=== PATIENT | male | born 1990 | race African-American/Black ===

== ENCOUNTER 2017-05-08 17:48 | Observation (INO) | payer OTHER ==
[~2017-05-08 17:48] MED LIST: ASPI81TA23 PO; CEPH-459 PO; TYLETAB34 PO; ZOFR4TAB3 SL
[2017-05-08] MEDS ORDERED: NITROGLYCERIN 0.4 MG SL 25 TABS/BTL SL PRN (20:00)
[2017-05-08] MEDS ORDERED: SODIUM CHLORIDE 0.9% FLUSH 10 ML FLUSH IV FLUSH PRN (20:00)
[2017-05-08] MEDS ORDERED: ACETAMINOPHEN 500 MG CPLT PO PRN (20:00)
--- NOTE | 2017-05-08 23:24 | HHI.HP ---
HPI Service [facility] Primary Care Physician Monse Gregory MD . Admission Diagnosis Chest pain . Diagnoses: (1) Valvular heart disease (2) Atypical chest pain Chief Complaint: Chest pain and shortness of breath with exertion Travel History International Travel<30 Days: No Contact w/Intl Traveler <30 Da: No History of Present Illness Mr. Lockett is a 26 y/o male with a history of endocarditis, valvular heart disease, possibly nonischemic cardiomyopathy, and hypertension who presented to the emergency room in [place] on 05/08/2017 for evaluation of chest pain and worsening shortness of breath with exertion. He was transferred to [facility] for observation and further evaluation. The patient is seen in the CDU. He reports shortness of breath with exertion and chest pain located on the left side of his chest and radiating down his left arm described as a cramp. The symptom is worsened with attempts at deep breathing. He seems to have limited insight into his medical conditions. He was initially sent over with a reported history of coronary artery disease but upon further discussion with him, it appears that he had nonischemic cardiomyopathy with valvular heart disease. He tells me his ob scrub tech is Dr. Cedeño. He does report a history of endocarditis but denies any history of IV drug abuse. He is not able to tell me how he got the infection in his heart valves. He tells me for the past few weeks, he has been having fevers and chills with cough and yellowish sputum production. He also reports maroon streaks in his bowel movements. He reports extensive weight loss in the last 2 years of 131 pounds - unintentional and related to poor appetite. He has a history of colon polyps. The patient reports that he has been off all of his heart medications over the past 2 years as he lost his health insurance in 2014. He tells me he is supposed to be taking a blood thinner. He was recently hospitalized [facility] in [place] and discharged 05/02/17. We need to obtain a copy of his past medical records. Review of Systems Except as stated in HPI: all other systems reviewed are Neg Past Family Social History Past Medical History Hypertension Endocarditis Valvular heart disease Questionable history of nonischemic cardiomyopathy Colon polyps . Past Surgical History Denies any prior surgery . Reported Medications Reported Meds & Active Scripts Active Reported Aspirin EC (Aspirin) 81 Mg Tabdr 81 Mg PO DAILY . Allergies: Coded Allergies: pollen extracts (Verified Allergy, Unknown, 05/08/17) Uncoded Allergies: SEAFOOD (Allergy, Unknown, 02/08/17) Active Ordered Medications Current Medications Sodium Chloride (NS Flush) 2 ml BID IV FLUSH Last administered on 05/09/17at 00: 18; Start 05/08/17 at 21:00 Sodium Chloride (NS Flush) 2 ml UNSCH PRN IV FLUSH FLUSH AFTER USING IV ACCESS ; Start 05/08/17 at 20:00 Nitroglycerin (Nitrostat Sl) 0.4 mg Q5M PRN SL ANGINA; Start 05/08/17 at 20:00 Acetaminophen (Tylenol) 500 mg Q4H PRN PO HEADACHE; Start 05/08/17 at 20:00 Heparin Sodium (Porcine) (Heparin Inj) 5,000 units Q8H SQ Last administered on 05/09/17at 00:20; Start 05/08/17 at 20:00 Aspirin (Aspirin) 325 mg DAILY PO ; Start 05/09/17 at 09:00 . Family History Mother with colon cancer, breast cancer Father with valvular heart disease, age 47 during valve replacement surgery . Social History Tobacco: Quit smoking 3 years ago but was never a heavy smoker Alcohol: Denies Illicit Drugs: formerly smoked marijuana . Physical Exam Vital Signs Vital Signs Date Time Temp Pulse Resp B/P (MAP) Pulse Ox O2 Delivery O2 Flow Rate FiO2 05/09/17 00:00 98.0 71 18 129/75 (93) 99 Physical Exam GENERAL: This is a well-nourished, well-developed patient, in no apparent distress. SKIN: No rashes, ecchymoses or lesions. Cool and dry. HEAD: Atraumatic. Normocephalic. EYES: No scleral icterus. No injection or drainage. ENT: Nose without bleeding, purulent drainage. NECK: Trachea midline. No JVD. CARDIOVASCULAR: Regular rate and rhythm with 3/6 systolic murmur heard throughout precordium. RESPIRATORY: Clear to auscultation. Breath sounds equal bilaterally. No wheezes , rales, or rhonchi. GASTROINTESTINAL: Abdomen soft, non-tender, nondistended. No guarding. MUSCULOSKELETAL: Extremities without clubbing, cyanosis, or edema. No calf tenderness. NEUROLOGICAL: Awake and alert. Motor and sensory grossly within normal limits. Normal speech. . Laboratory Laboratory Tests Test 05/08/17 15:00 05/08/17 19:45 White Blood Count 5.0 TH/MM3 Red Blood Count 4.88 MIL/MM3 Hemoglobin 16.3 GM/DL Hematocrit 48.5 % Mean Corpuscular Volume 99.4 FL Mean Corpuscular Hemoglobin 33.4 PG Mean Corpuscular Hemoglobin Concent 33.6 % Red Cell Distribution Width 11.8 % Platelet Count 209 TH/MM3 Mean Platelet Volume 11.2 FL Immature Granulocyte % (Auto) 0.4 % Neutrophils (%) (Auto) 54.7 % Lymphocytes (%) (Auto) 32.7 % Monocytes (%) (Auto) 6.2 % Eosinophils (%) (Auto) 5.0 % Basophils (%) (Auto) 1.0 % Immature Granulocyte # (Auto) 0.0 TH/MM3 Neutrophils # (Auto) 2.8 TH/MM3 Lymphocytes # (Auto) 1.7 TH/MM3 Monocytes # (Auto) 0.3 TH/MM3 Eosinophils # (Auto) 0.3 TH/MM3 Basophils # (Auto) 0.1 TH/MM3 CBC Comment DIFF FINAL Differential Comment Prothrombin Time 10.3 SEC Prothromb Time International Ratio 1.0 RATIO Blood Urea Nitrogen 19 MG/DL Creatinine 1.30 MG/DL Random Glucose 72 MG/DL Calcium Level 8.9 MG/DL Sodium Level 143 MEQ/L Potassium Level 4.0 MEQ/L Chloride Level 107 MEQ/L Carbon Dioxide Level 32.0 MEQ/L Anion Gap 4 MEQ/L Estimat Glomerular Filtration Rate 80 ML/MIN Total Creatine Kinase 202 U/L Creatine Kinase MB 4.8 NG/ML Troponin I 0.04 NG/ML Laboratory Tests Test 05/08/17 22:43 Total Creatine Kinase 153 U/L Troponin I 0.02 NG/ML Imaging Last Impressions Chest X-Ray 05/08/17 9831 Signed Impressions: Service Date/Time: Monday, May 08, 2017 15:46 - CONCLUSION: No acute disease. Marty Urena MD . Caprini VTE Risk Assessment Caprini VTE Risk Assessment: No/Low Risk (score <= 1) Caprini Risk Assessment Model Point Value = 1 Point Value = 2 Point Value = 3 Point Value = 5 Age 41-60 Minor surgery BMI > 25 kg/m2 Swollen legs Varicose veins or History of unexplained or recurrent spontaneous Oral contraceptives or hormone replacement Sepsis (< 1 month) Serious lung disease, including pneumonia (< 1 month) Abnormal pulmonary function Acute myocardial infarction Congestive heart failure (< 1 month) History of inflammatory bowel disease Medical patient at bed rest Age 61-74 Arthroscopic surgery Major open surgery (> 45 min) Laparoscopic surgery (> 45 min) Malignancy Confined to bed (> 72 hours) Immobilizing plaster cast Central venous access Age >= 75 History of VTE Family history of VTE Factor V Leiden Prothrombin [id number] Lupus anticoagulant Anticardiolipin antibodies Elevated serum homocysteine Heparin-induced thrombocytopenia Other congenital or acquired thrombophilia Stroke (< 1 month) Elective arthroplasty Hip, pelvis, or leg fracture Acute spinal cord injury (< 1 month) Prophylaxis Regimen Total Risk Factor Score Risk Level Prophylaxis Regimen 0-1 Low Early ambulation 2 Moderate Order ONE of the following: *Sequential Compression Device (SCD) *Heparin 5000 units SQ BID 3-4 Higher Order ONE of the following medications: *Heparin 5000 units SQ TID *Enoxaparin/Lovenox 40 mg SQ daily (WT < 150 kg, CrCl > 30 mL/min) *Enoxaparin/Lovenox 30 mg SQ daily (WT < 150 kg, CrCl > 10-29 mL/min) *Enoxaparin/Lovenox 30 mg SQ BID (WT < 150 kg, CrCl > 30 mL/min) AND/OR *Sequential Compression Device (SCD) 5 or more Highest Order ONE of the following medications: *Heparin 5000 units SQ TID (Preferred with Epidurals) *Enoxaparin/Lovenox 40 mg SQ daily (WT < 150 kg, CrCl > 30 mL/min) *Enoxaparin/Lovenox 30 mg SQ daily (WT < 150 kg, CrCl > 10-29 mL/min) *Enoxaparin/Lovenox 30 mg SQ BID (WT < 150 kg, CrCl > 30 mL/min) AND *Sequential Compression Device (SCD) Assessment and Plan Problem List: (1) Atypical chest pain ICD Code: R07.89 - Other chest pain (2) Valvular heart disease ICD Code: I38 - Endocarditis, valve unspecified Status: Chronic Assessment and Plan Mr. Lockett is a 26 y/o male with a history of endocarditis, valvular heart disease, possibly nonischemic cardiomyopathy, and hypertension who presented to the emergency room in [place] on 05/08/2017 for evaluation of chest pain and worsening shortness of breath with exertion. He was transferred to [facility] for observation and further evaluation. Atypical chest pain Shortness of breath with exertion Valvular heart disease - RN to obtain consent and medical records from [facility] in [place] as patient had a workup there and was discharged last Wednesday - patient states an echocardiogram was done - patient's ob scrub tech is Dr. Cedeño [place]. We may want to contact him for additional information as the patient does not have the best insight into his medical conditions - serial EKGs and cardiac enzymes to r/o ACS - Continuous cardiac telemetry to monitor for arrhythmias - Heart healthy diet until midnight, then nothing by mouth - will check D-Dimer - consider cardiology consultation Possible lower gi bleed - maroon streaked stool - will check stool for occult blood - H&H normal - follow CBC result in a.m. to trend - BP normal - consider GI consultation Unintentional weight loss - patient denies HIV risk factors - family history of colon cancer - will check TSH - will consult remote ruby on rails developer - medical records need to be obtained DVT prophylaxis - Heparin 5000 units subcutaneous every 8 hours Discussed Condition With Patient, RN, and Dr. Orosco . Bessie Foley May 08, 2017 23:24
[2017-05-09] VITALS (8 sets, daily range): BP systolic 129–163; BP diastolic 64–80; PULSE 53–82; RESP 18–20; TEMP 97–98.2; O2SAT 97–99
[2017-05-09 00:02] LABS: TROPONIN I 0.02 NG/ML (0.02-0.05)
[2017-05-09] MEDS: SODIUM CHLORIDE 0.9% FLUSH 10 ML FLUSH IV FLUSH SCH ×3 (00:18→21:48)
[2017-05-09] MEDS: HEPARIN SODIUM - SQ 10,000 UNITS/ML VIAL SQ SCH ×4 (00:20→21:48)
[2017-05-09 03:42] LABS: AUTOMATED NEUTROPHIL # 2.7 TH/MM3 (1.8-7.7); BASOPHIL # 0.1 TH/MM3 (0-0.2); BASOPHIL % 1.1 % (0.0-2.0); EOSINOPHIL # 0.4 TH/MM3 (0-0.4); EOSINOPHIL % 6.4 % (0.0-4.0); HEMATOCRIT 45.3 % (39.0-51.0); HEMOGLOBIN 15.3 GM/DL (13.0-17.0); LYMPH % 36.8 % (9.0-44.0); LYMPHOCYTE # 2.1 TH/MM3 (1.0-4.8); MEAN CELL VOLUME 98.4 FL (80.0-100.0); MEAN CORPUSCULAR HEMOGLOBIN 33.2 PG (27.0-34.0); MEAN CORPUSCULAR HGB CONC 33.7 % (32.0-36.0); MEAN PLATELET VOLUME 9.8 FL (7.0-11.0); MONO % 8.5 % (0.0-8.0); MONOCYTE # 0.5 TH/MM3 (0-0.9); NEUT % 47.2 % (16.0-70.0); PLATELET COUNT 171 TH/MM3 (150-450); RED BLOOD COUNT 4.61 MIL/MM3 (4.50-5.90); RED CELL DISTRIBUTION WIDTH 12.5 % (11.6-17.2); WHITE BLOOD COUNT 5.7 TH/MM3 (4.0-11.0)
[2017-05-09 03:55] LABS: BICARBONATE 27.3 MEQ/L (21.0-32.0); CALCIUM 8.7 MG/DL (8.5-10.1); CREATININE 0.93 MG/DL (0.60-1.30)
[2017-05-09 03:59] LABS: TROPONIN I 0.03 NG/ML (0.02-0.05)
[2017-05-09] MEDS: ASPIRIN 325 MG TAB PO SCH (08:53)
--- NOTE | 2017-05-09 14:03 | HHI.PR ---
Subjective Remarks Did not have a BM yet. BP into a higher side. Some nausea able to eat and keep down some food. Has chest pain. No fever or chills. Objective Vitals Vital Signs Date Time Temp Pulse Resp B/P (MAP) Pulse Ox O2 Delivery O2 Flow Rate FiO2 05/09/17 08:57 97.9 68 20 160/80 (106) 98 05/09/17 04:21 98.2 53 18 163/75 (104) 99 05/09/17 00:00 98.0 71 18 129/75 (93) 99 I/O 05/08/17 05/08/17 05/08/17 05/09/17 05/09/17 05/09/17 07:00 15:00 23:00 07:00 15:00 23:00 Intake Total 360 ml Output Total 100 ml Balance 260 ml Intake Oral 360 ml Output Urine Total 100 ml Result Diagram: 05/09/17 0323 05/09/17 032 Objective Remarks GENERAL: This is a well-nourished, well-developed patient, in no apparent distress. SKIN: No rashes, ecchymoses or lesions. Cool and dry. HEAD: Atraumatic. Normocephalic. EYES: No scleral icterus. No injection or drainage. ENT: Nose without bleeding, purulent drainage. NECK: Trachea midline. No JVD. CARDIOVASCULAR: Regular rate and rhythm with 3/6 systolic murmur heard throughout precordium. RESPIRATORY: Clear to auscultation. Breath sounds equal bilaterally. No wheezes , rales, or rhonchi. GASTROINTESTINAL: Abdomen soft, non-tender, nondistended. No guarding. MUSCULOSKELETAL: Extremities without clubbing, cyanosis, or edema. No calf tenderness. NEUROLOGICAL: Awake and alert. Motor and sensory grossly within normal limits. Normal speech. A/P Problem List: (1) Atypical chest pain ICD Code: R07.89 - Other chest pain (2) Valvular heart disease ICD Code: I38 - Endocarditis, valve unspecified Status: Chronic Assessment and Plan Mr. Lockett is a 26 y/o male with a history of endocarditis, valvular heart disease, possibly nonischemic cardiomyopathy, and hypertension who presented to the emergency room in [place] on 05/08/2017 for evaluation of chest pain and worsening shortness of breath with exertion. He was transferred to [facility] for observation and further evaluation. Atypical chest pain Shortness of breath with exertion Valvular heart disease - RN to obtain consent and medical records from [facility] in [place] as patient had a workup there and was discharged last Wednesday - patient states an echocardiogram was done - patient's log sorting supervisor is Dr. Cedeño [place]. neg - D-Dimer normal - Continuous cardiac telemetry to monitor for arrhythmias - Heart healthy diet until midnight, then nothing by mouth - consider cardiology consultation Possible lower gi bleed - maroon streaked stool - will check stool for occult blood - H&H normal - follow CBC result in a.m. to trend - BP normal - consider GI consultation Unintentional weight loss - patient denies HIV risk factors - family history of colon cancer - TSH is normal - will consult radiator tester - medical records need to be obtained DVT prophylaxis, scd/teds Discussed Condition With Patient, nurse Nasima Araiza MD May 09, 2017 14:03
--- NOTE | 2017-05-09 17:29 | EKG ---
Date Performed: 05/09/2017 Time Performed: 02:15:23 PTAGE: 26 years EKG: Sinus rhythm POSSIBLE LEFT VENTRICULAR HYPERTROPHY PROLONGED QT INTERVAL ABNORMAL ECG NO PREVIOUS TRACING DOCTOR: Peter Mathur Interpretating Date/Time 05/09/2017 17:57:23
--- NOTE | 2017-05-09 17:59 | EKG ---
Date Performed: 05/09/2017 Time Performed: 06:21:59 PTAGE: 26 years EKG: SINUS BRADYCARDIA POSSIBLE LEFT VENTRICULAR HYPERTROPHY PROLONGED QT INTERVAL ABNORMAL ECG PREVIOUS TRACING : 05/09/2017 02.15 Since previous tracing, no significant change noted DOCTOR: Peter Mathur Interpretating Date/Time 05/09/2017 17:57:45
[2017-05-09] MEDS ORDERED: NALOXONE HCL 0.4 MG/ML AMP IV PUSH PRN (19:45)
[2017-05-09] MEDS ORDERED: SENNOSIDES 8.6 MG TAB PO PRN (19:45)
[2017-05-09] MEDS ORDERED: MAGNESIUM HYDROXIDE SUSP 30 ML CUP PO PRN (19:45)
[2017-05-09] MEDS ORDERED: ONDANSETRON HCL 4 MG/2 ML VIAL IVP PRN (19:45)
[2017-05-09] MEDS ORDERED: ACETAMINOPHEN 325 MG TAB PO PRN (19:45)
[2017-05-09] MEDS ORDERED: SODIUM CHLORIDE 0.9% FLUSH 10 ML FLUSH IV FLUSH PRN (19:45)
[2017-05-09] MEDS ORDERED: ENALAPRILAT 2.5 MG/2 ML VIAL IV PUSH PRN (19:45)
[2017-05-09] MEDS ORDERED: BISACODYL 10 MG SUPP RECTAL PRN (19:45)
[2017-05-09] MEDS ORDERED: LACTULOSE SYRUP 20 GM/30 ML CUP PO PRN (19:45)
[2017-05-09] MEDS ORDERED: SODIUM CHLORIDE 0.9% FLUSH 10 ML FLUSH IV FLUSH SCH (21:00)
[2017-05-09] MEDS: DOCUSATE SODIUM 50 MG/SENNA 8.6 MG TAB PO SCH (21:00)
[2017-05-10] VITALS (9 sets, daily range): BP systolic 139–179; BP diastolic 70–79; PULSE 52–88; RESP 18–20; TEMP 97.8–98.3; O2SAT 98–99
[2017-05-10] MEDS: HEPARIN SODIUM - SQ 10,000 UNITS/ML VIAL SQ SCH ×3 (05:11→20:00)
[2017-05-10 08:43] LABS: BICARBONATE 25.8 MEQ/L (21.0-32.0); CALCIUM 8.7 MG/DL (8.5-10.1)
[2017-05-10 09:11] LABS: AUTOMATED NEUTROPHIL # 2.6 TH/MM3 (1.8-7.7); EOSINOPHIL # 0.3 TH/MM3 (0-0.4); HEMATOCRIT 48.2 % (39.0-51.0); HEMOGLOBIN 16.5 GM/DL (13.0-17.0); LYMPH % 32.3 % (9.0-44.0); LYMPHOCYTE # 1.6 TH/MM3 (1.0-4.8); MEAN CORPUSCULAR HEMOGLOBIN 33.7 PG (27.0-34.0); MEAN CORPUSCULAR HGB CONC 34.4 % (32.0-36.0); MEAN PLATELET VOLUME 10.6 FL (7.0-11.0); MONOCYTE # 0.4 TH/MM3 (0-0.9); NEUT % 52.7 % (16.0-70.0); PLATELET COUNT 195 TH/MM3 (150-450); RED BLOOD COUNT 4.91 MIL/MM3 (4.50-5.90); RED CELL DISTRIBUTION WIDTH 12.3 % (11.6-17.2); WHITE BLOOD COUNT 4.9 TH/MM3 (4.0-11.0)
[2017-05-10] MEDS: ASPIRIN 325 MG TAB PO SCH (10:14)
[2017-05-10] MEDS: SODIUM CHLORIDE 0.9% FLUSH 10 ML FLUSH IV FLUSH SCH ×2 (10:14→21:00)
[2017-05-10] MEDS: DOCUSATE SODIUM 50 MG/SENNA 8.6 MG TAB PO SCH ×2 (10:14→21:00)
--- NOTE | 2017-05-10 11:42 | HHI.PR ---
Subjective Remarks In bed says she has less pain. Very poor hystorian. Patient however is telling me he has a h/o endocarditis and thinks this is coming back. Says he had a PICC line and he did finish all the course of antibiotic and was cleared by his cardiology Dr Juliocesar Ward. Feels tired. No n/v/d/c. No sweating. Records pending , discussed withthe nurse and will call Beata Chavira and his cardiology office to obtain records faxed request again. Objective Vitals Vital Signs Date Time Temp Pulse Resp B/P (MAP) Pulse Ox O2 Delivery O2 Flow Rate FiO2 05/10/17 11:26 97.9 57 18 151/75 (100) 99 05/10/17 07:05 98.0 57 18 151/74 (99) 98 05/10/17 03:50 98.2 82 20 139/70 (93) 98 05/09/17 23:45 97.0 82 20 140/64 (89) 98 05/09/17 20:05 97.7 58 18 149/72 (97) 97 05/09/17 17:24 97.9 80 20 146/66 (92) 98 05/09/17 12:03 55 I/O 05/09/17 05/09/17 05/09/17 05/10/17 05/10/17 05/10/17 07:00 15:00 23:00 07:00 15:00 23:00 Intake Total 360 ml 360 ml Output Total 100 ml 700 ml Balance 260 ml -700 ml 360 ml Intake Oral 360 ml 360 ml Output Urine Total 100 ml 700 ml Result Diagram: 05/10/17 0645 05/10/17 0745 Objective Remarks GENERAL: This is a well-nourished, well-developed patient, in no apparent distress. SKIN: No rashes, ecchymoses or lesions. Cool and dry. HEAD: Atraumatic. Normocephalic. EYES: No scleral icterus. No injection or drainage. ENT: Nose without bleeding, purulent drainage. NECK: Trachea midline. No JVD. CARDIOVASCULAR: Regular rate and rhythm with 3/6 systolic murmur heard throughout precordium. RESPIRATORY: Clear to auscultation. Breath sounds equal bilaterally. No wheezes , rales, or rhonchi. GASTROINTESTINAL: Abdomen soft, non-tender, nondistended. No guarding. MUSCULOSKELETAL: Extremities without clubbing, cyanosis, or edema. No calf tenderness. NEUROLOGICAL: Awake and alert. Motor and sensory grossly within normal limits. Normal speech. A/P Problem List: (1) Atypical chest pain ICD Code: R07.89 - Other chest pain (2) Valvular heart disease ICD Code: I38 - Endocarditis, valve unspecified Status: Chronic Assessment and Plan Mr. Lockett is a 26 y/o male with a history of endocarditis, valvular heart disease, possibly nonischemic cardiomyopathy, and hypertension who presented to the emergency room in [place] on 05/08/2017 for evaluation of chest pain and worsening shortness of breath with exertion. He was transferred to [facility] for observation and further evaluation. Atypical chest pain Shortness of breath with exertion Valvular heart disease Per patient h/o endocarditis treated with IV antibiotic had a PICC line and also was cleared by his cardiology Dr Cedeño, however patient is a poor historian and doesn't have insight of his medical problems. - RN to obtain consent and medical records from [facility] in [place] as patient had a workup there and was discharged last Wednesday - patient states an echocardiogram was done - patient's personal financial representative is Dr. Cedeño [place]. neg - D-Dimer normal - Continuous cardiac telemetry to monitor for arrhythmias - Heart healthy diet until midnight, then nothing by mouth - consider cardiology consultation - Await records from Ignacio Chavira and his cardiology in [place] Dr Cedeño, discussed with the nurse, will fax again request Possible lower gi bleed - maroon streaked stool - will check stool for occult blood - H&H normal - follow CBC result in a.m. to trend - BP normal - consider GI consultation Unintentional weight loss - patient denies HIV risk factors - family history of colon cancer - TSH is normal - will consult grain elevator clerk - medical records need to be obtained DVT prophylaxis, scd/teds Discussed Condition With Patient, nurse Nasima Araiza MD May 10, 2017 11:42
[2017-05-11 00:49] VITALS: BP 150/73; PULSE 58; RESP 16; TEMP 97.8; O2SAT 97
[2017-05-11] MEDS: HEPARIN SODIUM - SQ 10,000 UNITS/ML VIAL SQ SCH ×2 (04:00→12:05)
[2017-05-11 07:43] VITALS: BP 142/67; PULSE 56; RESP 18; TEMP 97.7; O2SAT 100
[2017-05-11 08:15] VITALS: PULSE 54
[2017-05-11] MEDS: ASPIRIN 325 MG TAB PO SCH (09:40)
[2017-05-11] MEDS: DOCUSATE SODIUM 50 MG/SENNA 8.6 MG TAB PO SCH (09:40)
[2017-05-11] MEDS: SODIUM CHLORIDE 0.9% FLUSH 10 ML FLUSH IV FLUSH SCH (09:41)
[2017-05-11 11:29] VITALS: BP 151/70; PULSE 62; RESP 18; TEMP 97.5; O2SAT 99
--- NOTE | 2017-05-11 11:35 | HHI.DS ---
Discharge Summary Admission Date May 08, 2017 at 21:30 Discharge Date: May 11, 2017 Admitting Diagnosis Chest pain . (1) Atypical chest pain ICD Code: R07.89 - Other chest pain (2) Valvular heart disease ICD Code: I38 - Endocarditis, valve unspecified Status: Chronic Procedures none Brief History - From Admission Mr. Lockett is a 26 y/o male with a history of endocarditis, valvular heart disease, possibly nonischemic cardiomyopathy, and hypertension who presented to the emergency room in [place] on 05/08/2017 for evaluation of chest pain and worsening shortness of breath with exertion. He was transferred to [facility] for observation and further evaluation. The patient is seen in the CDU. He reports shortness of breath with exertion and chest pain located on the left side of his chest and radiating down his left arm described as a cramp. The symptom is worsened with attempts at deep breathing. He seems to have limited insight into his medical conditions. He was initially sent over with a reported history of coronary artery disease but upon further discussion with him, it appears that he had nonischemic cardiomyopathy with valvular heart disease. He tells me his plasticator is Dr. Cedeño. He does report a history of endocarditis but denies any history of IV drug abuse. He is not able to tell me how he got the infection in his heart valves. He tells me for the past few weeks, he has been having fevers and chills with cough and yellowish sputum production. He also reports maroon streaks in his bowel movements. He reports extensive weight loss in the last 2 years of 131 pounds - unintentional and related to poor appetite. He has a history of colon polyps. The patient reports that he has been off all of his heart medications over the past 2 years as he lost his health insurance in 2014. He tells me he is supposed to be taking a blood thinner. He was recently hospitalized [facility] in [place] and discharged 05/02/17. We need to obtain a copy of his past medical records. CBC/BMP: 05/10/17 0645 05/10/17 0745 Significant Findings Laboratory Tests Test 05/08/17 22:43 05/09/17 03:23 05/10/17 06:45 05/10/17 07:45 Monocytes (%) (Auto) 8.5 % (0.0-8.0) Eosinophils (%) (Auto) 6.4 % (0.0-4.0) 6.0 % (0.0-4.0) Chloride Level 108 MEQ/L (98-107) 108 MEQ/L (98-107) Imaging Reported Meds & Active Scripts Active Lisinopril 5 Mg Tab 5 Mg PO DAILY Reported Aspirin EC (Aspirin) 81 Mg Tabdr 81 Mg PO DAILY PE at Discharge GENERAL: This is a well-nourished, well-developed patient, in no apparent distress. SKIN: No rashes, ecchymoses or lesions. Cool and dry. HEAD: Atraumatic. Normocephalic. EYES: No scleral icterus. No injection or drainage. ENT: Nose without bleeding, purulent drainage. NECK: Trachea midline. No JVD. CARDIOVASCULAR: Regular rate and rhythm with 3/6 systolic murmur heard throughout precordium. RESPIRATORY: Clear to auscultation. Breath sounds equal bilaterally. No wheezes , rales, or rhonchi. GASTROINTESTINAL: Abdomen soft, non-tender, nondistended. No guarding. MUSCULOSKELETAL: Extremities without clubbing, cyanosis, or edema. No calf tenderness. NEUROLOGICAL: Awake and alert. Motor and sensory grossly within normal limits. Normal speech. Pt update on day of discharge Feels much better . No chest pain or sob overnight. No dizziness. Records from [facility] reviewed. Hospital Course Mr. Lockett is a 26 y/o male with a history of endocarditis, valvular heart disease, possibly nonischemic cardiomyopathy, and hypertension who presented to the emergency room in [place] on 05/08/2017 for evaluation of chest pain and worsening shortness of breath with exertion. He was transferred to [facility] for observation and further evaluation. His plasticator is Dr. Cedeño in [place] He does report a history of endocarditis but denies any history of IV drug abuse. He is not able to tell me how he got the infection in his heart valves. He was recently hospitalized [facility] in [place] and discharged 05/02/17. Copies of records obtained and reviewed. 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 The patient was previously evaluated by cardiothoracic surgeon did not proceed with aortic valve intervention. The patient presented to [place] with some chest pain or shortness of breath. Per records obtained from [facility] the patient was seen by cardiology repeated echo." Her face shows improvement for cardiology. The patient's symptoms resolved. He says he ran out of medications for blood pressure. His heart rate is into a lower side 50s. We will hold metoprolol. We'll give lisinopril at discharge. The patient feels much better, improved. No need to repeat echo was has a recent echo per [facility] shows improvement. The patient should follow up with his cardiology as outpatient Dr. Cedeño at [place] [facility] Condition on Discharge: Stable Discharge Disposition: Discharge Home Discharge Time: > 30 minutes Discharge Instructions DIET: Follow Instructions for: As Tolerated, No Restrictions Activities you can perform: Regular-No Restrictions Follow up Referrals: Cardiology - 1 Week PCP Follow-up - 2-3 Days New Medications: Lisinopril (Lisinopril) 5 Mg Tab 5 MG PO DAILY for Blood Pressure Management, #30 TAB 0 Refills Continued Medications: Aspirin DR (Aspirin EC) 81 Mg Tabdr 81 MG PO DAILY, TAB 0 Refills Nasima Araiza MD May 11, 2017 11:35
[2017-05-11] MEDS ORDERED: LISI-519 PO (11:38)
== END 2017-05-11 12:39 | disposition home health service (06) ==
LOC: NEDDLT 21:20 → NEPFCDU 21:30
PROVIDERS: ADMIT Hospitalist; ATTEND Hospitalist
DX: R07.89 Other chest pain (principal); I38 Endocarditis, valve unspecified; I10 Essential (primary) hypertension; R06.02 Shortness of breath; R63.4 Abnormal weight loss; I45.81 Long QT syndrome; R00.1 Bradycardia, unspecified; R94.31 Abnormal electrocardiogram [ECG] [EKG]; R50.9 Fever, unspecified; R11.0 Nausea; Z79.82 Long term (current) use of aspirin; Z86.010 Personal history of colon polyps; Z87.891 Personal history of nicotine dependence; Z80.0 Family history of malignant neoplasm of digestive organs
CPT/HCPCS: 71045; 80048; 82550; 82552; 84443; 84484; 85025; 85379; 85610; 87040; 93005; 96372; 96374; 99285; G0378; J1644

== ENCOUNTER 2018-04-17 21:30 | Observation (INO) ==
[2018-04-17 22:11] LABS: Baso # (Auto) 0.2 th/mm3 (0.0-0.2); Baso % (Auto) 2.7 % (0.0-2.0); Eos # (Auto) 0.4 th/mm3 (0.0-0.4); Hemoglobin 13.6 gm/dL (13.0-17.0); Lymph # (Auto) 2.3 th/mm3 (1.0-4.8); Lymph % (Auto) 34.3 % (9.0-44.0); Mean Corpuscular HGB Conc 32.4 % (32.0-36.0); Mean Corpuscular Hemoglobin 31.2 pg (27.0-34.0); Mean Corpuscular Volume 96.1 fL (80.0-100.0); Mean Platelet Volume 10.8 fL (7.0-11.0); Mono # (Auto) 0.5 th/mm3 (0.0-0.9); Mono % (Auto) 7.1 % (0.0-8.0); Neut # (Auto) 3.3 th/mm3 (1.8-7.7); Neut % (Auto) 49.9 % (16.0-70.0); Platelet Count 144 th/mm3 (150-450); Red Blood Count 4.37 mil/mm3 (4.50-5.90); Red Cell Distribution Width 13.9 % (11.6-17.2); White Blood Count 6.7 th/mm3 (4.0-11.0)
[2018-04-17] MEDS: Sod Chloride 0.9% Inj 1,000 ML IV.CONT SCH (22:12)
[2018-04-17 22:20] LABS: Chloride 106 meq/L (98-107); Potassium 3.9 meq/L (3.5-5.1); Sodium 142 meq/L (136-145)
[2018-04-17 22:24] LABS: Albumin 3.4 g/dL (3.4-5.0); Anion Gap 7 meq/L (5-15); Blood Urea Nitrogen 8 mg/dL (7-18); Carbon Dioxide 29.5 meq/L (21.0-32.0); Glucose,Random 71 mg/dL (74-106); Magnesium 2.3 mg/dL (1.5-2.5)
--- NOTE | 2018-04-17 22:26 | XR ---
EXAM DATE: 04/17/2018 10:21 PM EST AGE/SEX: 27 years / Male INDICATIONS: Left side chest pain. CLINICAL DATA: This is the patient's initial encounter. Patient reports that signs and symptoms have been present for 1 day and indicates a pain score of 6/10. MEDICAL/SURGICAL HISTORY: None. . Mitral valve surgery COMPARISON: [facility], CHEST 1V SINGLE AP, 03/28/2018. . FINDINGS: A single AP view of the chest demonstrates the lungs to be symmetrically aerated without evidence of mass, infiltrate or effusion. The cardiomediastinal contours are unremarkable. Osseous structures a re intact. CONCLUSION: The lungs are clear. Electronically signed by: Sven Royal MD Board Certified Radiologist 04/17/2018 10:24 PM EST
[2018-04-17 22:27] LABS: Alanine Aminotransferase 30 U/L (12-78); Aspartate Aminotransferase 30 U/L (15-37); Glomerular Filtration Rate 87 mL/min (>89)
[2018-04-17 22:28] LABS: Activated Partial Thrombo Time 27.3 sec (23.4-31.7); INR 0.9 Ratio; Prothrombin Time 9.6 sec (9.8-11.6)
[2018-04-17 22:29] LABS: Total Protein 6.8 g/dL (6.4-8.2)
[2018-04-17 22:30] LABS: Alkaline Phosphatase 82 U/L (45-117); Creatine Kinase 276 U/L (39-308)
[2018-04-17 22:32] LABS: Troponin I 0.02 ng/mL (0.02-0.05)
[2018-04-17 22:33] LABS: D-Dimer 0.33 mg/L FEU (0.00-0.50)
[2018-04-17 22:45] LABS: Creatine Kinase MB 4.9 ng/mL (0.5-3.6)
--- NOTE | 2018-04-18 00:08 | ED ---
HPI General Chief Complaint: Chest Pain Stated Complaint: ALMANZA/CP since 1500 Time Seen by Provider: 04/17/18 21:52 Source: patient Mode of arrival: ambulatory Limitations: no limitations History of Present Illness HPI narrative: 27-year-old male presents to the emergency department for chest pain that worsens with movement and deep inspiratory effort. Patient states symptoms have been present for the past 4-5 hours. Patient is taken no medications. 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 Patient is on Plavix and Xarelto. Patient's frickertron checker is located in [facility] Dr. Cedeño and cannot recall who his cardiothoracic surgeon was in December but surgery was done at [place]. Patient has been seen numerous times for same or similar type complaint of chest pain with deep inspiratory effort. Patient has had negative CTA in the past. Patient is unable to identify exacerbating or alleviating factors. Patient denies any fever chills cough congestion sore throat earache referred neck jaw back shoulder arm pain. Patient had some shortness of breath. No lower extremity pain or swelling. No history of clotting disorder. Patient has been compliant with his medications. Patient rates pain as moderate to severe. Onset at rest. MD complaint: Reports chest pain STEMI Alert: No Onset (ago): hour(s) (4-5) Time: 16:05 Duration: intermittent Onset: during rest Pain location: Reports left chest Severity: moderate Quality: Reports tightness, aching and sharp (hurts to breathe) Pain radiation: Reports back Relieving factors: nothing Exacerbating factors: nothing Context: Reports recent surgery (12/2017 aortic valve replacement bicuspid valve with vegetation ---denies IVDA use or history; admits to ) Associated symptoms: Reports dyspnea; Denies nausea, vomiting, diaphoresis, sense of impending doom, syncope, palpitations, fever, cough and leg swelling Treatments prior to arrival chest pain: Reports none Related Data Previous Rx's Medication Instructions Recorded clopidogrel [Plavix] 75 mg PO DAILY 30 Days #30 tab 03/29/18 lisinopril 5 mg PO DAILY #30 tab 03/29/18 metoprolol tartrate 12.5 mg PO BID 30 Days #30 tab 03/29/18 rivaroxaban [Xarelto] 10 mg PO DAILY 30 Days #30 tab 03/29/18 Allergies Allergy/AdvReac Type Severity Reaction Status Date / Time shellfish derived Allergy Mild Anaphylaxis Verified 04/17/18 21:31 Review of Systems ROS: all other systems reviewed are negative [facility] Medical History Medical History Anxiety (Acute) High cholesterol (Acute) Hypertension (Acute) Surgical History Surgical History History of heart valve replacement (Acute) Family History Family History Other No pertinent family history Social History Social History Substance History: No History of Abuse Second Hand Smoke Exposure: No Smoking Status: Former smoker Tobacco Type: Cigarettes How Often Do You Have a Drink Containing Alcohol: Never Recent Travel in [facility] within the Last 8 Weeks: No Recent Out of Country Travel within the Last 8 Weeks: No Immunization History Tetanus Immunization: <5 Years Exam Narrative Exam Narrative: GENERAL: Well-nourished, well-developed patient. SKIN: Focused skin assessment warm/dry. HEAD: Normocephalic. EYES: No scleral icterus. No injection or drainage. NECK: Supple, trachea midline. No JVD or lymphadenopathy. CARDIOVASCULAR: Regular rate and rhythm without murmurs, gallops, or rubs. Radial and dorsalis pedis pulses 2+ to palpation bilaterally; chest: Well- healed midline sternotomy scar no redness induration tenderness or fluctuance. RESPIRATORY: Breath sounds equal bilaterally. No accessory muscle use. GASTROINTESTINAL: Abdomen soft, non-tender, nondistended. MUSCULOSKELETAL: No cyanosis, or edema. BACK: Nontender without obvious deformity. No CVA tenderness. Course Initial Documented Vital Signs Temperature 98.5 F 04/17/18 21:35 Pulse Rate 72 04/17/18 21:35 Respiratory Rate 16 04/17/18 21:35 Blood Pressure 160/85 H 04/17/18 21:35 Pulse Oximetry 100 04/17/18 21:35 Last Documented Vital Signs Temperature 98.5 F 04/17/18 21:35 Pulse Rate 70 04/18/18 00:53 Respiratory Rate 16 04/18/18 00:53 Blood Pressure 154/75 H 04/18/18 00:53 Pulse Oximetry 99 04/18/18 00:53 Medical Decision Making MDM Narrative Medical decision making narrative: 27-year-old male presents to the emergency department for reproducible chest wall pain and pleuritic pain. Symptoms been present since onset at rest around 4 PM. Associated with shortness of breath and increased pain with deep respiratory effort and movement. Patient underwent aortic valve replacement with porcine valve 12/2017 and is currently prescribed Plavix and Xarelto. D-dimer: 0.33 not elevated Troponin I less than 0.02; CK total is in normal range but CK-MB is mildly elevated; EKG is sinus rhythm with mild biphasic T wave changes that are more prominent on today's EKG than prior. Patient had voltage criterion for LVH. Urine drug screen pending. Patient's case discussed with medicine service for observation admission. Chest pain center per protocol Medical Screen Exam Complete: Yes Emergency Medical Condition: Yes Differential Diagnosis Differential Diagnosis: Chest pain atypical chest pain ACS CO pleurisy costochondritis PE pneumonia pneumothorax esophageal spasm cholecystitis peptic ulcer disease dissection Medical Records Medical records reviewed: Yes I reviewed the patient's medical records. Lab Data Lab results reviewed: Yes I reviewed the patient's lab results. Result diagrams: 04/17/18 22:00 04/17/18 22:00 Lab Results 04/17/18 04/17/18 04/17/18 Range/Units 22:00 22:00 22:00 CBC w Diff Auto diff final WBC 6.7 (4.0-11.0) th/mm3 RBC 4.37 L (4.50-5.90) mil/mm3 Hgb 13.6 (13.0-17.0) gm/dL Hct 42.0 (39.0-51.0) % MCV 96.1 (80.0-100.0) fL MCH 31.2 (27.0-34.0) pg MCHC 32.4 (32.0-36.0) % RDW 13.9 (11.6-17.2) % Plt Count 144 L (150-450) th/mm3 MPV 10.8 (7.0-11.0) fL Neut % (Auto) 49.9 (16.0-70.0) % Lymph % (Auto) 34.3 (9.0-44.0) % [place] % (Auto) 7.1 (0.0-8.0) % Eos % (Auto) 6.0 H (0.0-4.0) % Baso % (Auto) 2.7 H (0.0-2.0) % Neut # (Auto) 3.3 (1.8-7.7) th/mm3 Lymph # (Auto) 2.3 (1.0-4.8) th/mm3 [place] # (Auto) 0.5 (0.0-0.9) th/mm3 Eos # (Auto) 0.4 (0.0-0.4) th/mm3 Baso # (Auto) 0.2 (0.0-0.2) th/mm3 WBC Differential . Differential Comment . PT 9.6 L (9.8-11.6) sec INR 0.9 Ratio APTT 27.3 (23.4-31.7) sec D-Dimer Quant (PE/DVT) 0.33 (0.00-0.50) mg/L FEU Sodium 142 (136-145) meq/L Potassium 3.9 (3.5-5.1) meq/L Chloride 106 (98-107) meq/L Carbon Dioxide 29.5 (21.0-32.0) meq/L Anion Gap 7 (5-15) meq/L BUN 8 (7-18) mg/dL Creatinine 1.20 (0.60-1.30) mg/dL Estimated GFR 87 L (>89) mL/min Random Glucose 71 L (74-106) mg/dL Calcium 8.0 L (8.5-10.1) mg/dL Magnesium 2.3 (1.5-2.5) mg/dL Total Bilirubin 0.2 (0.2-1.0) mg/dL AST 30 (15-37) U/L ALT 30 (12-78) U/L Alkaline Phosphatase 82 (45-117) U/L Total Creatine Kinase 276 (39-308) U/L CK-MB (CK-2) 4.9 H (0.5-3.6) ng/mL Troponin I 0.02 (0.02-0.05) ng/mL Total Protein 6.8 (6.4-8.2) g/dL Albumin 3.4 (3.4-5.0) g/dL Serum Alcohol Less than 3 (0-5) mg/dL 04/18/18 Range/Units 00:15 CBC w Diff WBC (4.0-11.0) th/mm3 RBC (4.50-5.90) mil/mm3 Hgb (13.0-17.0) gm/dL Hct (39.0-51.0) % MCV (80.0-100.0) fL MCH (27.0-34.0) pg MCHC (32.0-36.0) % RDW (11.6-17.2) % Plt Count (150-450) th/mm3 MPV (7.0-11.0) fL Neut % (Auto) (16.0-70.0) % Lymph % (Auto) (9.0-44.0) % [place] % (Auto) (0.0-8.0) % Eos % (Auto) (0.0-4.0) % Baso % (Auto) (0.0-2.0) % Neut # (Auto) (1.8-7.7) th/mm3 Lymph # (Auto) (1.0-4.8) th/mm3 [place] # (Auto) (0.0-0.9) th/mm3 Eos # (Auto) (0.0-0.4) th/mm3 Baso # (Auto) (0.0-0.2) th/mm3 WBC Differential Differential Comment PT (9.8-11.6) sec INR Ratio APTT (23.4-31.7) sec D-Dimer Quant (PE/DVT) (0.00-0.50) mg/L FEU Sodium (136-145) meq/L Potassium (3.5-5.1) meq/L Chloride (98-107) meq/L Carbon Dioxide (21.0-32.0) meq/L Anion Gap (5-15) meq/L BUN (7-18) mg/dL Creatinine (0.60-1.30) mg/dL Estimated GFR (>89) mL/min Random Glucose (74-106) mg/dL Calcium (8.5-10.1) mg/dL Magnesium (1.5-2.5) mg/dL Total Bilirubin (0.2-1.0) mg/dL AST (15-37) U/L ALT (12-78) U/L Alkaline Phosphatase (45-117) U/L Total Creatine Kinase 232 (39-308) U/L CK-MB (CK-2) 4.4 H (0.5-3.6) ng/mL Troponin I 0.03 (0.02-0.05) ng/mL Total Protein (6.4-8.2) g/dL Albumin (3.4-5.0) g/dL Serum Alcohol (0-5) mg/dL Imaging Data Radiologist's impression: Chest X-Ray 04/17/18 21:52 CONCLUSION: The lungs are clear. ECG Data EKG Prior to Arrival: No Attestation: I personally reviewed and interpreted this ECG as follows: (Normal sinus rhythm no acute ST elevation biphasic T waves with LVH criteria by voltage ; artifact is present at baseline) Discharge Plan Discharge Disposition Patient Disposition: ED Admit(ED Internal Use Only) Discharge Condition Condition: Stable Discharge Order Discharge Orders: ED Use Only Admit Order (Routine); Ordered 04/18/18 Ordered By: Angela Cuevas Discharge Details Diagnosis: Chest pain Physicians Team ED Provider: Angela Cuevas Primary Care Provider: UNKNOWN, Attending Provider: Karly Galo Status ED Status: Admitted Observation Patient
[2018-04-18 00:46] LABS: Creatine Kinase 232 U/L (39-308); Troponin I 0.03 ng/mL (0.02-0.05)
[2018-04-18 00:58] LABS: Creatine Kinase MB 4.4 ng/mL (0.5-3.6)
[2018-04-18 02:09] VITALS: RESP 20
[2018-04-18 02:29] LABS: Amphetamine Screen,Urine Neg (Neg); Barbiturate Screen,Urine Neg (Neg); Cannabinoid Screen,Urine Pos (Neg); Cocaine Screen,Urine Pos (Neg)
[2018-04-18 02:35] LABS: Opiate Screen,Urine Neg (Neg)
[2018-04-18 03:55] LABS: Troponin I 0.03 ng/mL (0.02-0.05)
[2018-04-18] MEDS: Sod Chloride 0.9% Inj 1,000 ML IV.CONT SCH (09:55)
[2018-04-18 09:59] VITALS: O2SAT 99
[2018-04-18] MEDS ORDERED: Metoprolol Tartrate 25 MG Tablet PO SCH (11:00)
[2018-04-18] MEDS ORDERED: Lisinopril 5 MG Tablet PO SCH (11:00)
[2018-04-18] MEDS ORDERED: Rivaroxaban 10 MG Tablet PO SCH (11:00)
--- NOTE | 2018-04-18 11:12 | P.HPIM ---
History of Present Illness Primary Care Physician: UNKNOWN Chief Complaint: Chest pain History of Present Illness: 27-year-old male with a rather extensive history of heart disease, porcine aortic valve replacement, family history of heart disease , recent hospitalization for same symptoms of chest pain and diagnosed with pleurisy at that time, history of endocarditis without any history of IV drug use. Patient came back to the emergency department because of continued chest discomfort. He states that the pain is located over the left side of his chest going up into his left arm without any radiation to the neck, back. Denies any nausea, vomiting, diaphoresis. States that the pain is worse when he takes a deep breath. He called his primary medical doctor's office who told him to go to the pharmacy and asked the pharmacist what antibiotic would be appropriate so he could give him a prescription. 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 Patient states that the pain comes on both at rest and during exertion. Patient was just admitted the first part of this month for the same symptoms and was evaluated by infectious disease. At that time they indicated the patient had pleurisy and needed outpatient management. What appears the patient does have persistent and uncontrolled hypertension. Patient was evaluated by emergency department and had workup done which was relatively unremarkable except for drug screen positive for cocaine and marijuana. Patient adamantly denies any cocaine use. Patient denies any IV drug use. Review of Systems Review of Systems: all other systems reviewed are negative Cardiovascular: Reports chest pain Respiratory: Reports pain on inspiration [facility] Medical History Medical History History of endocarditis (Acute) Anxiety (Acute) High cholesterol (Acute) Hypertension (Acute) Surgical History Surgical History History of heart valve replacement (Acute) Social History Social History Substance History: No History of Abuse Second Hand Smoke Exposure: No Smoking Status: Never smoker Tobacco Type: Cigarettes How Often Do You Have a Drink Containing Alcohol: Never Recent Travel in [facility] within the Last 8 Weeks: No Recent Out of Country Travel within the Last 8 Weeks: No Immunization History Tetanus Immunization: <5 Years Medications and Allergies Allergies Allergy/AdvReac Type Severity Reaction Status Date / Time shellfish derived Allergy Mild Anaphylaxis Verified 04/17/18 21:31 Active Medications: Active Medications Clopidogrel Bisulfate (Plavix) 75 mg PO DAILY [facility] Sodium Chloride (Ns Inj) 1,000 mls @ 100 mls/hr IV.CONT .Q10H [facility] Last Admin: 04/18/18 09:55 Dose: 100 mls/hr Lisinopril (Prinivil) 5 mg PO DAILY [facility] Metoprolol Tartrate (Lopressor) 12.5 mg PO BID [facility] Nitroglycerin (Nitrostat Sl) 0.4 mg SL Q5M PRN PRN Reason: CHEST PAIN Rivaroxaban (Xarelto) 10 mg PO DAILY [facility] Sodium Chloride (Ns Flush) 2 ml IV.FLUSH UNSCH PRN PRN Reason: FLUSH AFTER USING IV ACCESS Sodium Chloride (Ns Flush) 2 ml IV.FLUSH BID [facility] Last Admin: 04/18/18 09:55 Dose: Not Given Sodium Chloride (Ns Flush) 2 ml IV.FLUSH PRN PRN PRN Reason: FLUSH AFTER USING IV ACCESS Physical Exam Vital signs: Last Vital Signs Temp 96.6 F L 04/18/18 08:00 Pulse 57 L 04/18/18 08:00 Resp 20 04/18/18 08:00 BP 164/109 H 04/18/18 08:00 Pulse Ox 99 04/18/18 08:00 Intake & Output 04/16/18 04/17/18 04/18/18 04/19/18 06:59 06:59 06:59 06:59 Intake Total 1000 / 1000 Output Total 450 / 450 Balance -450 / -450 1000 / 1000 Weight 90.8 kg Narrative: GENERAL: Well-developed, well-nourished, in no acute distress. alert and orientated HEENT: Head is normocephalic without any lesions or masses noted. Facial features are symmetric. Eyes: Pupils equal round reactive to light. Extraocular muscles are intact. Conjunctivae were clear. Oropharyngeal: Pharynx without any erythema edema. Tongue is midline without deviation. Buccal mucosa is moist without any masses or lesions NECK: Supple without any masses. Trachea midline no deviation. No JVD, no bruits are appreciated CARDIAC: Regular rhythm, regular rate. S1/S2 are heard. Obvious valve noises, no clicks were appreciated. No murmurs gallops or rubs. LUNGS: Clear to auscultation bilaterally. No wheeze, rhonchi or rales. No use of accessory muscles on inspiration or expiration. ABDOMEN: Soft, nontender. Nondistended. Bowel sounds heard in all 4 quadrants. No organomegaly or masses. Negative rebound, negative guarding EXTREMITIES: No edema, pulses are equal bilaterally. No cyanosis or clubbing NEUROLOGY: Mood and affect appear appropriate. Cranial nerves II through XII grossly intact. Muscle strength 5/5 in upper and lower extremities bilaterally. Deep tendon reflexes are 2+ in upper and lower extremities bilaterally. Results Labs CBC & Chem 7: 04/17/18 22:00 04/17/18 22:00 Imaging Impressions Chest X-Ray 04/17/18 21:52 CONCLUSION: The lungs are clear. Caprini VTE Risk Assessment Caprini VTE Risk Assessment: Moderate/High Risk (score >= 2) Caprini Risk Assessment Model: Point Value = 1 Point Value = 2 Point Value = 3 Point Value = 5 Age 41-60 Minor surgery BMI > 25 kg/m2 Swollen legs Varicose veins or History of unexplained or recurrent spontaneous Oral contraceptives or hormone replacement Sepsis (< 1 month) Serious lung disease, including pneumonia (< 1 month) Abnormal pulmonary function Acute myocardial infarction Congestive heart failure (< 1 month) History of inflammatory bowel disease Medical patient at bed rest Age 61-74 Arthroscopic surgery Major open surgery (> 45 min) Laparoscopic surgery (> 45 min) Malignancy Confined to bed (> 72 hours) Immobilizing plaster cast Central venous access Age >= 75 History of VTE Family history of VTE Factor V Leiden Prothrombin [id number] Lupus anticoagulant Anticardiolipin antibodies Elevated serum homocysteine Heparin-induced thrombocytopenia Other congenital or acquired thrombophilia Stroke (< 1 month) Elective arthroplasty Hip, pelvis, or leg fracture Acute spinal cord injury (< 1 month) Prophylaxis Regimen: Total Risk Factor Score Risk Level Prophylaxis Regimen 0-1 Low Early ambulation 2 Moderate Order ONE of the following: *Sequential Compression Device (SCD) *Heparin 5000 units SQ BID 3-4 Higher Order ONE of the following medications: *Heparin 5000 units SQ TID *Enoxaparin/Lovenox 40 mg SQ daily (WT < 150 kg, CrCl > 30 mL/min) *Enoxaparin/Lovenox 30 mg SQ daily (WT < 150 kg, CrCl > 10-29 mL/min) *Enoxaparin/Lovenox 30 mg SQ BID (WT < 150 kg, CrCl > 30 mL/min) AND/OR *Sequential Compression Device (SCD) 5 or more Highest Order ONE of the following medications: *Heparin 5000 units SQ TID (Preferred with Epidurals) *Enoxaparin/Lovenox 40 mg SQ daily (WT < 150 kg, CrCl > 30 mL/min) *Enoxaparin/Lovenox 30 mg SQ daily (WT < 150 kg, CrCl > 10-29 mL/min) *Enoxaparin/Lovenox 30 mg SQ BID (WT < 150 kg, CrCl > 30 mL/min) AND *Sequential Compression Device (SCD) Assessment and Plan Plan Chest pain, atypical -Patient presented with recurrent chest discomfort which is worse on inspiration -Patient has been ruled out for acute coronary event with serial cardiac enzymes that are negative -Serial EKG shows sinus rhythm without any changes -Patient with recent admission on 03/28/18 for same symptoms and was diagnosed with pleurisy at that time, echocardiogram was also performed at that time which did not indicate any endocarditis. Normal ejection fraction. Normal functioning with mild thickened aortic bioprosthesis -Instructed patient that he needs to continue follow-up with his outpatient director part/primary medical doctor for further management and care. Patient has been ruled out 2 times this month for any acute cardiac injury or illness. On his last admission patient was diagnosed with pleurisy. Patient symptoms appear to be the same. -We will supply the patient with prescription for indomethacin 75 mg twice daily Hypertension, uncontrolled -Continue home medications Aortic valve replacement -Continue anticoagulation DVT prevention -Patient is on Xarelto Discharge Planning: Discharge home in stable condition Activity: Ad dawn. Diet: Healthy heart diet Medication per medication reconciliation Follow-up with primary medical doctor in 1 week H&P: Quality VTE Deep Vein Thrombosis/Pulmonary Embolism Present on Admission: No
--- NOTE | 2018-04-18 11:38 | ECG ---
Date Performed: 04/18/2018 Time Performed: 03:39:51 PTAGE: 27 years EKG: Sinus rhythm POSSIBLE LEFT VENTRICULAR HYPERTROPHY ABNORMAL ECG NO PREVIOUS TRACING DOCTOR: Alfredo Del Castillo Interpretating Date/Time 04/18/2018 11:36:28
--- NOTE | 2018-04-18 11:40 | ECG ---
Date Performed: 04/18/2018 Time Performed: 00:31:44 PTAGE: 27 years EKG: Sinus rhythm POSSIBLE LEFT VENTRICULAR HYPERTROPHY NONSPECIFIC T-WAVE ABNORMALITY PROLONGED QT INTERVAL ABNORMAL ECG PREVIOUS TRACING : 04/17/2018 21.38 Since the previous tracing, no significant change noted DOCTOR: Alfredo Del Castillo Interpretating Date/Time 04/18/2018 11:38:05
--- NOTE | 2018-04-18 11:43 | ECG ---
Date Performed: 04/17/2018 Time Performed: 21:38:50 PTAGE: 27 years EKG: Sinus rhythm NONSPECIFIC T-WAVE ABNORMALITY PROLONGED QT INTERVAL ABNORMAL ECG PREVIOUS TRACING : 03/28/2018 12.04 Since the previous tracing, no significant change noted DOCTOR: Alfredo Del Castillo Interpretating Date/Time 04/18/2018 11:42:35
[2018-04-18 13:12] VITALS: BP 140/96; PULSE 69; TEMP 98.7
== END 2018-04-18 12:30 | disposition home or self-care (01) ==
LOC: PHED 21:30 → PHEDA 21:30 → PH3 04-18 01:48
PROVIDERS: ADMIT Hospitalist; ATTEND Hospitalist
CPT/HCPCS: 71010; 71045; 80053; 80307; 82550; 82552; 83735; 84484; 85025; 85379; 85610; 85730; 90760; 90761; 93005; 96360; 96361; 99285; G0378; J7030